=== PATIENT | female | born 1980 | race Caucasian/White ===

== ENCOUNTER 2016-07-16 12:33 | Emergency (ER) | payer OTHER, BC ==
[~2016-07-16] VITALS: Ht 165.1 cm; Wt 85.0 kg
[~2016-07-16 12:33] MED LIST: AGM875 PO; OXYC1TAB3 PO
[2016-07-16 12:37] VITALS: TEMP 36.7; Ht 165.1 cm; Wt 85.0 kg
[2016-07-16] MEDS ORDERED: OXYCODONE/ACETAMINOPHEN 5-325 TAB PO ONE (12:45)
[2016-07-16] MEDS ORDERED: IBUPROFEN 600 MG TAB PO STA (12:45)
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
[2016-07-16] MEDS ORDERED: SUMA50TA15 PO (13:00)
[2016-07-16] MEDS ORDERED: BCPILLS PO (13:00)
[2016-07-16] MEDS ORDERED: AMT/25 PO (13:00)
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
[2016-07-16] MEDS ORDERED: OXYC-57 PO (13:46)
[2016-07-16 13:57] VITALS: BP 147/96; PULSE 97; O2SAT 96
== END 2016-07-16 13:58 | disposition home or self-care (01) ==
LOC: EDBD 12:33 → C.EDA 12:34
DX: M79.632 Pain in left forearm (principal); V49.40XA Driver injured in collision with unspecified motor vehicles in traffic accident, initial encounter